=== PATIENT | male | born 1935 | race Caucasian/White ===

== ENCOUNTER → 2017-10-20 | Outpatient (CLI) | payer MEDICARE, BC ==
--- NOTE | 2017-10-20 13:25 | DRAGON STRESS TEST REPORT ---
EXERCISE CARDIOLITE STRESS TEST USING SINGLE PHOTON EMMISION COMPUTERIZED TOMOGRAPHIC. DATE OF PROCEDURE: October 20, 2017 INDICATION : Coronary artery disease, dyspnea CARDIAC RISK FACTORS: Diabetes, hypertension, dyslipidemia RESTING EKG: Sinus rhythm without any baseline ST segment changes REASON FOR TERMINATION: Dyspnea and fatigue. PROCEDURE REPORT: Baseline heart rate 60 beats per minute with blood pressure of 142/79. Patient had no significant complaints. Patient was exercised on a modified Harmeet protocol. Patient exercised for a total of 6 minutes. Peak heart rate 121 which is more than 85 % of predicted maximum. Peak blood pressure 177/81. Double product was noted to be adequate kcal. No significant EKG changes were noted. Patient had no significant complaints during the procedure or postprocedure. IMPRESSION EXERCISE PART: Average exercise tolerance for patient age. No significant EKG ST segment changes with exercise. NUCLEAR DATA: At rest the patient was injected with 13.62 millicuries of technetium 99 sestamibi injected intravenously. As per protocol rest gated SPECT images were obtained. Subsequently the stress dose of 41.4 millicuries of technetium 99 sestamibi was injected intravenously at peak exercise and patient continued to exercise for 1 to 2 additional minute. As per protocol stress gated images were obtained. NUCLEAR INTERPRETATION: Both raw and processed data were used for interpretation. Visual, qualitative, computer-generated quantitative data was used. There was good myocardial uptake of technetium compound. Motion artifact and soft tissue attenuations were noted. Increased visceral uptake was noted. No definitive areas of transient perfusion defect noted. No definitive areas of fixed perfusion defect or scars noted. Borderline decreased uptake was noted in the mid inferior wall but is felt to be artifactual, SDS was just 1 and there were no corresponding regional wall motion abnormalities on gated imaging. EKG gated imaging showed LV EF at 56 %, rest and stress gated EF similar visually. T. I D. ratio was 1.15. Lung heart ratio noted to be within normal limits 0.31. No significant extracardiac and abnormal radiotracer activities were noted. RV free wall uptake was noted to be WNL. IMPRESSION: Also refer to comments under nuclear interpretation. Also test results needs to be interpreted in the context of pretest probability. 1. There is no definitive scintigraphic evidence of exercise induced myocardial ischemia at achieved double product. 2. There is no definitive scintigraphic evidence of myocardial infarction/scar. 3. EKG gated imaging shows left ejection fraction of approximately 56 %. 4. Patient noted to have average exercise tolerance. Patient had adequate heart rate response. BP response mildly suboptimal. No significant EKG changes were noted with exercise at adequate double product. RECOMMENDATIONS: Aggressive risk factor modification, medical therapy. Further evaluation may be needed if patient continues with significant symptoms or has other high risk features. Clinical correlation with echocardiogram derived ejection fraction. Consider cardiology consultation and or follow-up if clinically indicated. I AM AVAILABLE FOR CARDIOLOGY CONSULTATION AND FOLLOWUP IF REQUESTED BY PMD Ronna Clarke M.D., [employer]ist [employer] model, Board certified in cardiovascular diseases, Nuclear cardiology, Echocardiography Cardiac CT and cardiac MRI Ph. [phone] [facility]
== END ==
LOC: RAD 08:30
PROVIDERS: ATTEND Internal Medicine Cardiovascular Disease
DX: I25.10 Atherosclerotic heart disease of native coronary artery without angina pectoris (principal)
CPT/HCPCS: 93017; 78452; A9500; Q9969